=== PATIENT | female | born 1970 | race Caucasian/White ===

== ENCOUNTER 2023-12-03 00:49 | Day surgery (SDC) | payer OTHER, SELFPAY ==
[2023-11-19 10:03] VITALS: BMI 23.5
--- NOTE | 2023-12-03 08:07 | WPDANESEPPF ---
Anes - Initial Pre Proc Eval Procedure: Operation Date: 12/03/23 10:00 Proposed Procedures p Screening Colonoscopy - Cyril Pennington MD Date/Time: 12/03/23 08:07 Surgeon: Cyril Pennington MD Pre Op Diagnosis: neoplasm screening Patient Data Age: 53 Gender: F Height: 1.68 m Weight: 66 kg Allergies Allergy/AdvReac Type Severity Reaction Status Date / Time No Known Allergies Allergy Verified 12/03/23 08:43 Home Medications Medication Instructions Recorded Confirmed Type losartan 100 1 tablet PO DAILY 11/19/23 12/03/23 History mg-hydrochlorothiazide 12.5 mg tablet Patient hx anesthesia problems: none Family hx anesthesia problems: none Results Review: All pre-operative results and documents have been reviewed as part of the pre-operative evaluation. [facility] Past Medical History Medical History (Updated 12/03/23 @ 08:07 by Taco Collins DO) Hypertension Surgical History Surgical History (Updated 12/03/23 @ 08:07 by Taco Collins DO) History of tubal ligation Social History Social History Alcohol intake: current Living arrangements: with family Spiritual care concerns: No Anes - Eval Final PreProcedure Day of Procedure 12/03/23 08:07 Patient weight: normal Heart: regular rate and rhythm Lungs: clear to auscultation and normal air movement Airway: Mallampati scale class II Neurological: alert and oriented Last oral intake: >/= 8 hours ASA classification: II Emergent: no Anesthetic plan: proceed Anesthesia type and monitoring: general GIVS and standard monitoring Results Review: All pre-operative results and documents have been reviewed as part of the pre-operative evaluation. Informed Consent: The patient's anesthetic plan and its attendant risks and benefits were discussed with the patient/family/POA. Questions were solicited and answers provided to the satisfaction of the patient/family/POA.
[2023-12-03 08:44] VITALS: BP 122/68; PULSE 56; RESP 16; TEMP 36.8; O2SAT 100
[2023-12-03] MEDS: LACTATED RINGERS 1,000 ML 150 ML IV CONT (08:53)
--- NOTE | 2023-12-03 09:08 | PM.HPGS ---
History of Present Illness History of Present Illness Consent: Risks, benefits, and alternatives have been discussed and questions answered. Patient agrees to proceed with procedure. Chief complaint: neoplasm screening Narrative: Tina Aceves is a 53 year old female here for first screening colonoscopy, sister had colon cancer Review of Systems Review of Systems: All systems reviewed & are unremarkable except as noted in HPI and below PMFSH Past Medical History Medical History (Updated 12/03/23 @ 09:09 by Cyril Pennington MD) Family history of colon cancer Hypertension Surgical History Surgical History (Updated 12/03/23 @ 08:07 by Taco Collins DO) History of tubal ligation Social History Social History Alcohol intake: current Living arrangements: with family Spiritual care concerns: No Meds Home Medications and Allergies Home Medications Medication Instructions Recorded Confirmed Type losartan 100 1 tablet PO DAILY 11/19/23 12/03/23 History mg-hydrochlorothiazide 12.5 mg tablet Allergies Allergy/AdvReac Type Severity Reaction Status Date / Time No Known Allergies Allergy Verified 12/03/23 08:43 Vital Signs Vital Signs - 24 hr 12/03/23 08:44 Temperature 98.3 F Pulse Rate 56 L Respiratory Rate 16 Blood Pressure 122/68 Pulse Oximetry 100 Oxygen Delivery Room Air Exam Const: General: comfortable and no acute distress HENMT: Face/Nose/Sinus: Normal nares present Eyes: General: appearance normal, both eyes and all related structures Neck: Neck: no JVD Resp: Auscultation: clear to auscultation bilaterally Cardio: Rate: regular rate Rhythm: regular rhythm GI: Inspection: non-distended GI Palp: Yes Soft to palpation Skin: General skin exam: normal color Neuro: General: gait normal Speech: normal speech Extrem: General: normal to inspection Psych: Mental Status: mental status grossly normal Assessment and Plan Assessment and plan (1) Family history of colon cancer: Code(s): Z80.0 - Family history of malignant neoplasm of digestive organs Status: Acute Assessment and Plan: colonoscopy
[2023-12-03 09:29] VITALS: BP 85/50; PULSE 66; RESP 19; O2SAT 96
[2023-12-03 09:39] VITALS: BP 103/65; PULSE 59; RESP 15; O2SAT 99
[2023-12-03 09:49] VITALS: BP 107/63; PULSE 58; RESP 20; O2SAT 100
[2023-12-03] MEDS: PROPARACAINE HCL 0.5% 15 ML OPHTH SOLN 1 DROP EACH EYE (10:03)
[2023-12-03] MEDS: DICLOFENAC SODIUM 0.1% OPHTH SOLN 2.5 ML BOTTLE 1 DROP EACH EYE (10:13)
--- NOTE | 2023-12-03 10:15 | SUR.PHASEII ---
Pt. reports blurred vision and irritation to left eye, Dr. Collins notified and eye protocol started. Eye drops ordered and administered to left eye per protocol. Pt. reports improvement in vision and less irritation. Discharge completed without difficulty.
[2023-12-03] MEDS: ARTIFICIAL TEARS OPHTH SOLN 15 ML BOTTLE 1 DROP EACH EYE (10:21)
== END 2023-12-03 10:29 | disposition home or self-care (01) ==
PROVIDERS: PCP Physician Assistant; Visit Provider Internal Medicine Gastroenterology
PROC: 0DJD8ZZ Inspection of Lower Intestinal Tract, Via Natural or Artificial Opening Endoscopic (ICD-10-PCS; CPT 45378; principal; 2023-12-03 10:00)
DX: Z12.11 Encounter for screening for malignant neoplasm of colon (principal); D12.2 Benign neoplasm of ascending colon; I10 Essential (primary) hypertension; Z98.51 Tubal ligation status; Z80.0 Family history of malignant neoplasm of digestive organs
CPT/HCPCS: 45380; 88305; A9270; J2704; J7120

== ENCOUNTER 2024-11-16 16:04 | Emergency (ER) | payer OTHER, SELFPAY ==
--- NOTE | ~2024-11-16 | XR_ITS ---
XR chest 2V Ordering provider: Manuel Love MD History: 54 years Female with . weakness . Comparison: None. FINDINGS: MEDIASTINUM: The cardiac silhouette is not enlarged. LUNGS: No infiltrates, effusions or pneumothorax. OTHER: No free air under the diaphragm. Degenerative changes of the spine. IMPRESSION: No acute cardiopulmonary pathology Reviewed, dictated and finalized at location A.
[2024-11-16 16:02] VITALS: BP 137/88; PULSE 65; RESP 20; TEMP 36.7; O2SAT 99
--- NOTE | 2024-11-16 16:08 | ECG_ITS ---
Test Date: 2024-11-16 16:11:25 Measurements Intervals Riley Rate: 63 P: 64 NM: 167 QRS: 88 QRSD: 98 T: 63 QT: 406 QTc: 418 Interpretive Statements SINUS RHYTHM No previous ECG available for comparison Electronically Signed On 11-17-2024 12:04:32 CDT by Danish Moreno M.D.
[2024-11-16 16:23] LABS: Basophils Percent Auto 0.3 % (0.2-1.2); Eosinophils Percent Auto 0.3 % (0-4.4); Hemoglobin 13.3 g/dL (12.0-15.0); Immature Granulocyte Absolute 0.01 K/mm3 (0.00-0.031); Immature Granulocyte Percent A 0.1 % (0-0.5); Lymphocytes Absolute Auto 3.54 K/mm3 (0.9-3.2); Lymphocytes Percent Auto 40.2 % (18.3-44.2); Mean Corpuscular HGB Conc 32.4 g/dl (32-36); Mean Corpuscular Hemoglobin 31.5 pg (26-34); Mean Corpuscular Volume 97.2 fl (80-100); Mean Platelet Volume 9.5 fl (7.4-10.4); Monocytes Absolute Auto 0.8 K/mm3 (0.1-0.6); Monocytes Percent Auto 8.9 % (2.6-8.5); Neutrophils Absolute Auto 4.4 K/mm3 (1.3-6.7); Neutrophils Percent Auto 50.2 % (45.5-73.1); Platelet Count Result 246 k/mm3 (150-375); Red Blood Count 4.22 M/mm3 (4.2-5.4); Red Cell Distribution Width 13.8 % (11.5-14.5); White Blood Count 8.8 K/mm3 (4.5-10.0)
[2024-11-16 16:34] LABS: Alanine Aminotransferase 19 U/L (6-35); Albumin Level 4.4 g/dL (3.5-5.1); Alkaline Phosphatase 98 U/L (38-126); Anion Gap 8 mmol/L (4-12); Aspartate Amino Transferase 27 U/L (14-36); Bilirubin,Total 0.4 mg/dL (0.2-1.3); Blood Urea Nitrogen 18 mg/dL (7-17); Calcium 9.4 mg/dL (8.4-10.2); Carbon Dioxide 28 mmol/L (22-30); Chloride 104 mmol/L (98-107); Estimated CRCL calculation 63 ml/min; Estimated Glomerular Filt Rate > 60; Glucose 116 mg/dL (65-110); Potassium 3.4 mmol/L (3.4-5.0); Sodium 140 mmol/L (137-145)
--- OUTSIDE RECORDS SUMMARY | 2024-11-16 16:36 | XMS_ITS | Encounter Summary ---
Author Organization [facility] Facility Care Team Providers Care Electrical Transmission Engineer Name Role Phone Alvin Bailey NP Primary Care Provider [phone] Aleks Franks MD Unavailable [phone] Aleks Franks MD Unavailable [phone] Miscellaneous, Not In File Primary Care Provider Unavailable Heidi Hayden Primary Care Provider + Encounter Details Date Type Department Care Team (Latest Contact Info) Description 11/28/2014 Orders Only [facility]IN[facility] ProviderOanh MD [address] [place] [id number] Social History Tobacco Use Types Packs/Day Years Used Date Smoking Tobacco: Never Assessed Comments Unknown Sex and Gender Information Value Date Recorded Sex Assigned at Not on file Legal Sex Female 2:52 AM CLINICAL MENTAL HEALTH COUNSELOR Gender Identity Not on file Sexual Orientation Not on file documented as of this encounter Plan of Treatment Not on file documented as of this encounter Procedures Procedure Name Priority Date/Time Associated Diagnosis Comments CARDIOLOGY REPORT 07/29/2016 12: 00 AM CLINICAL MENTAL HEALTH COUNSELOR documented in this encounter Results * CARDIOLOGY REPORT (07/29/2016 12:00 AM CLINICAL MENTAL HEALTH COUNSELOR) Anatomical Region Laterality Modality Other Narrative 07/29/2016 12:00 AM CLINICAL MENTAL HEALTH COUNSELOR Ordered by an unspecified provider. Historical Provider [facility] DAVIDA THURSTON Final Result documented in this encounter Visit Diagnoses Not on filedocumented in this encounter Care Teams Electrical Transmission Engineer Relationship Specialty Start Date End Date Alvin Bailey NP PCP - General Family Practice 02/14/19 12/17/19 Miscellaneous, Not In File PCP - General 12/18/19 02/12/20 Heidi Hayden PA PCP - General 02/13/20 Aleks Franks MD Consulting Physician Cardiovascular Disease 02/14/19 Aleks Franks MD Mortgage Loan Interviewer Cardiology 02/17/19 documented as of this encounter
--- OUTSIDE RECORDS SUMMARY | 2024-11-16 16:36 | XMS_ITS | Encounter Summary ---
Author Organization [facility] Facility Care Team Providers Care Sliver Lapper Name Role Phone Alvin Bailey NP Primary Care Provider [phone] Aleks Franks MD Unavailable [phone] Aleks Franks MD Unavailable [phone] Miscellaneous, Not In File Primary Care Provider Unavailable Heidi Hayden Primary Care Provider + Encounter Details Date Type Department Care Team (Latest Contact Info) Description 01/03/2015 Orders Only [facility]INCON[facility] ProviderOanh MD [address] [place] [address] Social History Tobacco Use Types Packs/Day Years Used Date Smoking Tobacco: Never Assessed Comments Unknown Sex and Gender Information Value Date Recorded Sex Assigned at Not on file Legal Sex Female 2:52 AM HOSPICE VOLUNTEER Gender Identity Not on file Sexual Orientation Not on file documented as of this encounter Plan of Treatment Not on file documented as of this encounter Procedures Procedure Name Priority Date/Time Associated Diagnosis Comments CARDIOLOGY REPORT 07/29/2016 12: 00 AM HOSPICE VOLUNTEER documented in this encounter Results * CARDIOLOGY REPORT (07/29/2016 12:00 AM HOSPICE VOLUNTEER) Anatomical Region Laterality Modality Other Narrative 07/29/2016 12:00 AM HOSPICE VOLUNTEER Ordered by an unspecified provider. Historical Provider [facility] DAVIDA THURSTON Final Result documented in this encounter Visit Diagnoses Not on filedocumented in this encounter Care Teams Sliver Lapper Relationship Specialty Start Date End Date Alvin Bailey NP PCP - General Family Practice 02/14/19 12/17/19 Miscellaneous, Not In File PCP - General 12/18/19 02/12/20 Heidi Hayden PA PCP - General 02/13/20 Aleks Franks MD Consulting Physician Cardiovascular Disease 02/14/19 Aleks Franks MD Supervisor [facility] Cardiology 02/17/19 documented as of this encounter
--- OUTSIDE RECORDS SUMMARY | 2024-11-16 16:36 | XMS_ITS | Referral Summary ---
Author Organization [facility] Address [address] [place] [address] Care Team Providers Care Real Estate Management Specialist Name Role Phone Aleks Franks MD Unavailable [phone] Heidi Hayden Primary Care Provider + Encounters Date Type Department Care Team Description 08/22/2024 4:45 PM HEAVY FORGER HELPER Office Visit [facility] Medical [facility] Care at [address] [address] Betty Chavez NP Acute cough (Primary Dx) from Last 3 Months Allergies No known active allergies Medications lisinopril-hydr oCHLOROthiazide (PRINZIDE,ZESTO RETIC) 10-12.5 mg per tablet Take 1 tablet by mouth daily 1 02/15/2019 Active acetaminophen (TYLENOL) 325 mg tablet Take 1 tablet (325 mg total) by mouth as needed Active escitalopram (LEXAPRO) 20 mg tablet Take 1 tablet (20 mg total) by mouth daily Active oxyBUTYnin (DITROPAN) 5 mg tablet Take 1 tablet (5 mg total) by mouth 3 (three) times a day 90 tablet 08/09/2023 Active traMADoL (ULTRAM) 50 mg tablet Take 1 tablet (50 mg total) by mouth every 6 (six) hours for 2 days 8 tablet 08/09/2023 Active losartan-hydroC HLOROthiazide (HYZAAR) 100-12.5 mg per tablet TAKE 1 TABLET BY MOUTH EVERY DAY FOR BLOOD PRESSURE AND FLUID RETENTION. Active Active Problems Problem Noted Date Diagnosed Date Irregular bowel habits 08/22/2024 Lower urinary tract symptoms (LUTS) 08/22/2024 Urinary tract infection, chronic 08/16/2023 Abdominal pain, acute 03/19/2023 Abnormal result of other cardiovascular function study 11/16/2022 Abnormal EKG 10/19/2022 Palpitations 10/19/2022 Tingling of skin 10/19/2022 Chest pain, unspecified 02/22/2019 Assessment & Plan (02/22/2019 11:54 AM CDT): Occurs rarely. Atypical. None while exercising. Stress test 1 year ago okay. No additional workup at this time. Cardiac arrhythmia 09/30/2018 Mitral valve prolapse 09/29/2018 Supraventricular tachycardia 09/29/2018 Essential hypertension 01/07/2017 Assessment & Plan (02/22/2019 11:53 AM CDT): Controlled. Continue lisinopril PVC's (premature ventricular contractions) 01/07 Assessment & Plan (02/22/2019 11:53 AM CDT): Frequent. Symptomatic. Remotely ablated with excellent results. Anxiety disorder 07/29/2016 Dizziness 07/29/2016 Shortness of breath 07/29/2016 Social History Tobacco Use Types Packs/Day Years Used Date Smoking Tobacco: Never Smokeless Tobacco: Never Alcohol Use Standard Drinks/Week Comments Yes 0 (1 standard drink = 0.6 oz pur e alcohol) occassionally Personal Safety Answer Date Recorded Have you ever been in or are you currently in a harmful physical or emotional relationship or is someone making you feel afraid or unsafe? Denies 08/08/2023 Comments No Sex and Gender Information Value Date Recorded Sex Assigned at Not on file Legal Sex Female 2:52 AM HEAVY FORGER HELPER Gender Identity Not on file Sexual Orientation Not on file Last Filed Vital Signs Vital Sign Reading Time Taken Comments Blood Pressure 142/81 08/22/2024 4:45 PM HEAVY FORGER HELPER Pulse 69 08/22/2024 4:45 PM HEAVY FORGER HELPER Temperature 36.8 C (98.3 F) 08/22/2024 4:45 PM HEAVY FORGER HELPER Respiratory Rate 20 08/22/2024 4:45 PM HEAVY FORGER HELPER Oxygen Saturation 99% 08/22/2024 4:45 PM HEAVY FORGER HELPER Inhaled Oxygen Concentration - - Weight 69.9 kg (154 lb) 08/22/2024 4:45 PM HEAVY FORGER HELPER Height 167.6 cm (5' 6 ) 08/22/2024 4:45 PM HEAVY FORGER HELPER Body Mass Index 24.86 08/22/2024 4:45 PM HEAVY FORGER HELPER Plan of Treatment Not on file Procedures Procedure Name Priority Date/Time Associated Diagnosis Comments SCREENING MAMMOGRAM BILATERAL W TUSHAR Routine 11/19/2014 5:44 PM CDT from Last 3 Months or Most Recently Relevant to Health Maintenance Results * Screening Mammogram Bilateral W Tushar (11/19/2014 5:44 PM CDT) Anatomical Region Laterality Modality Breast Bilateral Mammography 11/19/2014 5:44 PM CDT Impressions 11/20/2014 8:27 AM CDT BIRADS 2: BENIGN There is no mammographic evidence of malignancy. A 1 year screening mammogram is recommended. The patient has been or will be contacted. The patient will be entered into an automated reminder system to schedule a mammogram in one year. Electronically signed by: Conrad Poe md/:11/20/2014 08:22:57 Funeral Planner: Payton FARAH (R)(M), [facility] letter sent: Normal Exam Reading location: BI-RADS: 2 Benign [EOD] Narrative 11/20/2014 8:27 AM CDT - JHONATHAN BILAT SCREENING 3D W/CAD BILATERAL DIGITAL SCREENING MAMMOGRAM 3D/2D WITH CAD WITH MEDIOLATERAL OBLIQUE CRANIOCAUDAL: 11/19/2014 The study was acquired using full field digital technology and interpreted from soft copy. Current study was also evaluated with ICAD version 7.2. CLINICAL: Baseline exam. Patient denies any problems today. No family or personal history of breast cancer. COMPARISONS: No prior exams were available for comparison. BREAST TISSUE: The tissue of both breasts is heterogeneously dense which may obscure small masses. FINDINGS: Multiple subcentimeter oval circumscribed isodense masses are present within both breasts. These are most consistent with a benign process, probably cysts and/or intramammary lymph nodes. No suspicious/spiculated mass is seen within either breast. There are no suspicious microcalcifications or other significant findings. Procedure Note Provider, MD Oanh - 11/26/2020 - JHONATHAN BILAT SCREENING 3D W/CAD BILATERAL DIGITAL SCREENING MAMMOGRAM 3D/2D WITH CAD WITH MEDIOLATERALOBLIQUE CRANIOCAUDAL: 11/19/2014 The study was acquired using full field digital technology and interpretedfrom soft copy. Current study was also evaluated with ClzbyD version 7.2. CLINICAL: Baseline exam. Patient denies any problems today. No family or personal history of breast cancer. COMPARISONS: No prior exams were available for comparison. BREAST TISSUE: The tissue of both breasts is heterogeneously dense whichmay obscure small masses. FINDINGS: Multiple subcentimeter oval circumscribed isodense masses are present within both breasts. These are most consistent with a benignprocess, probably cysts and/or intramammary lymph nodes. No suspicious/spiculated mass is seen within either breast. There are no suspicious microcalcifications or other significant findings. IMPRESSION: BIRADS 2: BENIGN There is no mammographic evidence of malignancy. A 1 year screeningmammogram is recommended. The patient has been or will be contacted. The patient will be entered into an automated reminder system to schedulea mammogram in one year. Electronically signed by: Conrad Poe md/:11/20/2014 08:22:57 Funeral Planner: Payton Phoenix RT (R)(M), [facility] letter sent: Normal Exam Reading location: BI-RADS: 2 Benign [EOD] Tina Garza MD IMG MAMMO PRO CEDURES Final Result from Last 3 Months or Most Recently Relevant to Health Maintenance Insurance ALLIED BENEFITS [employer] HE[employer] OPEN ACCESS HE[employer] OPEN ACCESS HE[employer] PPO POS Advance Directives For more information, please contact: [phone] Documents on File Type Date Recorded Patient Therapeutic Mentor Expl anation ADVANCE DIRECTIVE 01/02/2015 12:00 AM KELECHI Steele OF [employer] FACILITATOR FINANCIAL/MEDICAL Care Teams Real Estate Management Specialist Relationship Specialty Start Date End Date Heidi Hayden PA PCP - General 02/13/20 Aleks Franks MD Radio Artist Cardiology 02/17/19
--- OUTSIDE RECORDS SUMMARY | 2024-11-16 16:36 | XMS_ITS | CONTINUITY OF CARE DOCUMENT ---
Author Name peyton todd Address Unknown Organization [facility] Address [address] [place] [address] Phone [phone] Care Team Providers Care Massage Therapist Name Role Phone Joseph Ferreira MD Unavailable CHRISTI DAIGLE MD Unavailable [phone] CHRISTI DAIGLE MD Unavailable [phone] PROBLEMS Condition Status Date Provider Notes Cardiology examination active Joseph benedict MD Chest pain, normal coronary CTA 12/2022 active Joseph Ferreira MD PVCs s/p ablation with Dr. Franks at [facility] active Joseph Ferreira MD Tingling, fingers active Joseph Ferreira MD Family History of CVA active Joseph Ferreira MD Mitral valve prolapse completed - Joseph Ferreira MD Palpitations active Joseph Ferreira MD HTN essential active Joseph Ferreira MD Abnormal EKG active Joseph Ferreira MD Abnormal cardiovascular stre ss test 11/2022, false positive active Joseph Ferreira MD Abdominal pain, acute active Jensen Gonzalez Urinary tract infection, chronic active Joseph Ferreira MD Cardiology examination active Joseph benedict MD ENCOUNTERS Date Type Provider Location Encounter Diag nosis - In-person encounter Office Visit Joseph Ferreira MD [place] [facility] - In-person encounter Office Visit Joseph Ferreira MD [place] [facility] Cardiology examination - In-person encounter Office Visit Joseph Ferreira MD [place] [facility] Urinary tract infection, chronic - In-person encounter Office Visit [facility] HTN essential - In-person encounter Office Visit [facility] Abdominal pain, acute - In-person encounter Office Visit Joseph Ferreira MD [place] [facility] Chest pain, normal coronary CTA bnormal cardiovascular stress test 11/2022, false positive - In-person encounter Office Visit Joseph Ferreira MD [place] [facility] Mitral valve prolapseAbnormal cardiovascular stress test 11/2022, false positive - In-person encounter Office Visit Joseph Ferreira MD [place] [facility] Cardiology examinationChest pain, normal coronary CTA VCs s/p ablation with Dr. Franks at [facility] History of CVAPalpitationsHTN essentialAbnormal EKG VITAL SIGNS Date Observation Value Provider Body Mass Index (Ratio) 24.85 kg/m2 Kenyon Ferreira MD pulse rate 67 /min Nakia samayoa oxygen saturation, oximetry 97 % Nakia Roberts blood pressure, diastolic 80 mm[Hg] Ti leo Roberts blood pressure, systolic 120 mm[Hg] Shashi Roberts weight E&M 154 [lb_av] Nakia samayoa blood pressure, cuff size regular Ti leo Roberts height E&M 66 [in_i] Nakia samayoa Body Mass Index (Ratio) 24.05 kg/m2 Kenyon Ferreira MD blood pressure, diastolic 79 mm[Hg] Catherine nkLogic blood pressure, systolic 111 mm[Hg] Constanza kLog blood pressure, cuff size regular Ta rogelio Merlos blood pressure, diastolic 79 mm[Hg] Ta bitha Merlos blood pressure, systolic 111 mm[Hg] Tab jacquelyna Hardin pulse rate 74 /min Vianey Merlos weight E&M 149 [lb_av] Vianey Merlos oxygen saturation, oximetry 96 % Vianey Merlos respiratory rate E&M 12 /min Vianey Hardin height E&M 66 [in_i] Vianey Hardin Body Mass Index (Ratio) 24.69 kg/m2 Kenyon Ferreira MD blood pressure, cuff size regular [facility] blood pressure, diastolic 82 mm[Hg] [facility] blood pressure, systolic 111 mm[Hg] [facility] E&M 153 [lb_av] [facility] pulse rate 61 /min [facility] oxygen saturation, oximetry 98 % [facility] respiratory rate E&M 16 /min Adrienne Nancy kristel height E&M 66 [in_i] [facility] Body Mass Index (Ratio) 25.18 kg/m2 Kenyon Ferreira MD blood pressure, diastolic 90 mm[Hg] Sandhya cordonkvng Carter blood pressure, systolic 118 mm[Hg] Doroteo Carter oxygen saturation, oximetry 98 % Esperanza Carter pulse rate 62 /min Esperanza rowland blood pressure, cuff size large Sandhya cornelius Raul respiratory rate E&M 14 /min Alicja Carter weight E&M 156 [lb_av] Esperanza rowland height E&M 66 [in_i] Esperanza Ramsey kashif Body Mass Index (Ratio) 25.14 kg/m2 Kenyon Ferreira MD blood pressure, cuff size regular Catherine stewart Francis blood pressure, diastolic 105 mm[Hg] Li hailybeduke Francis blood pressure, systolic 152 mm[Hg] Priyanka barrientosh Francis oxygen saturation, oximetry 99 % Nevaeh Francis respiratory rate E&M 16 /min Nevaeh Francis pulse rate 65 /min Nevaeh Ruiz weight E&M 155.8 [lb_av] Nevaeh Ruiz height E&M 66 [in_i] [facility] Body Mass Index (Ratio) 25.34 kg/m2 Rodney Gonzalez pulse rate 62 /min Rebecca Bhardwaj blood pressure, cuff size regular ynes Bhardwaj blood pressure, diastolic 82 mm[Hg] ynes Bhardwaj blood pressure, systolic 133 mm[Hg] She elly Bhardwaj oxygen saturation, oximetry 97 % Rebecca Bhardwaj respiratory rate E&M 18 /min Rebecca Bhardwaj weight E&M 157 [lb_av] Rebecca Bhardwaj height E&M 66 [in_i] Rebecca Bhardwaj Body Mass Index (Ratio) 24.85 kg/m2 Kenyon Ferreira MD blood pressure, cuff size regular Ke rri Butchuenenfmeli blood pressure, diastolic 80 mm[Hg] Ke rri Gruenenfelder blood pressure, systolic 150 mm[Hg] Ker ri Marynenfeldheike oxygen saturation, oximetry 98 % Keyona Nichelle respiratory rate E&M 12 /min Keyona Jessica simmseldheike pulse rate 69 /min Keyona Marynenfe [facility] weight E&M 154 [lb_av] Keyona Saldaña [facility] height E&M 66 [in_i] Keyona Saldaña [facility] Body Mass Index (Ratio) 24.39 kg/m2 Kenyon ross Ferreira MD blood pressure, diastolic -1 mm[Hg] Li nkLogly blood pressure, systolic 147 mm[Hg] Constanza kLogly blood pressure, diastolic 93 mm[Hg] Ilya Bhardwaj blood pressure, systolic 147 mm[Hg] She elly Bhardwaj blood pressure, cuff size regular Ilya Bhardwaj pulse rate 61 /min Joseph Ferreira MD oxygen saturation, oximetry 98 % Rebecca Bhardwaj respiratory rate E&M 18 /min Rebecca Bhardwaj weight E&M 151.1 [lb_av] Rebecca Bhardwaj height E&M 66 [in_i] Rebecca Bhardwaj ALLERGIES No Known Drug Allergies RESULTS Date Observation Value Provider Reference Range Interpretation Location 7 creatinine, serum 0.71 mg/dL [facility] 0.50-1.03 Normal 7 C-reactive protein, by highly sensitive test 1.6 mg/L [facility] <1.0 High 7 LDL Size 223.6 Angstrom [facility] >222.9 7 LDL particle concentration (lipoprotein panel), risk categories correspond to NCEP categories for LDL cholesterol (on a percentile equivalent basis) 941 nmol/L [facility] <1138 7 cholesterol, non-HDL, total 76 MG/DL (CALC) [facility] <130 7 cholesterol/HDL ratio, serum, percent 2.2 calc [facility] <3.6 7 LDL cholesterol, serum 62 MG/DL (CALC) [facility] <100 7 triglyceride, serum, fasting 49 mg/dL [facility] <150 7 HDL cholesterol, serum 66 mg/dL [facility] >49 7 cholesterol, serum 142 mg/dL [facility] <200 HISTORY OF MEDICATION USE Medication Status Instructions Dates Provider Indications Com ments losartan-hydroc hlorothiazide 100-12.5 mg tablet active TAKE 1 TABLET BY MOUTH EVERY DAY FOR BLOOD PRESSURE AND FLUID RETENTION. Therese Melgoza losartan-hydroc hlorothiazide 100-12.5 mg tablet completed Take 1 tablet by mouth once a day - Therese Melgoza metoprolol tartrate 100 mg tablet completed TAKE 1 TABLET BY MOUTH THE EVENING BEFORE THE CT AND 1 TABLET an hour and a half BEFORE CT - Jensen Gonzalez SOCIAL HISTORY Date Observation Value Provider smoking status Never smoker Joseph benedict MD smoking status Never smoker Adrienne Merlos social history E&M S moking History: Levi perez has never smoked. Joseph eFrreira MD social history reviewed E&M revi ewed - no changes required Joseph Ferreira MD smoking status Never smoker Esperanza Arzola and social history E&M S moking History: Levi perez has never smoked. Jensen Gonzalez social history reviewed E&M revi ewed - no changes required Jensen Gonzalez smoking status Never smoker Nevaeh Francis social history E&M S moking History: Levi perez has never smoked. Joseph Ferreira MD social history reviewed E&M revi ewed - no changes required Joseph Ferreira MD smoking status Never smoker Rebecca Bhardwaj social history E&M S moking History: Levi perez has never smoked. Joseph Ferreira MD social history reviewed E&M revi ewed - no changes required Joseph Ferreira MD smoking status Never smoker Keyona dacosta number of grandchildren Joseph Ferreira MD social history E&M S moking History: Levi perez has never smoked. Joseph Ferreira MD social history reviewed E&M alecia ayala - no changes required Joseph Ferreira MD smoking status Never smoker Rebecca Bhardwaj INSURANCE PROVIDERS Payer name Policy type / Coverage type Sallie red constitution party ID [employer] Other [id number] ADVANCE DIRECTIVES Name Date DISCUSSED - NO DECISION MADE TREATMENT PLAN Date Name Performer [id number],S, Joseph Berkowitz ra, [place] [id number],S, Joseph Berkowitz ra, MD [id number],S, Joseph Berkowitz ra, [place] [id number],B, B P today: 118/90 P rior BP: 152/105 (03/19/2023) Her updated medication list for this problem includes: Losartan-hydrochlorothiazide 100-12.5 Mg Tablet (Losartan-hydrochlorothiazide) ..... Take 1 tablet by mouth once a day Joseph Ferreira MD [id number],WJensen [id number],W, B P today: 152/105 P rior BP: 133/82 (01/11/2023) The following medications were removed from the medication list: Metoprolol Tartrate 100 Mg Tablet (Metoprolol tartrate) ..... Take 1 tablet by mouth the evening before the ct and 1 tablet an hour and a half before ct Her updated medication list for this problem includes: Losartan-hydrochlorothiazide 100-12.5 Mg Tablet (Losartan-hydrochlorothiazide) ..... Take 1 tablet by mouth once a day Jensen Gonzalez [id number],S, Jensen Gonzalez [id number],WJensen [id number],B, T he following medications were removed from the medication list: Metoprolol Tartrate 100 Mg Tablet (Metoprolol tartrate) ..... Take 1 tablet by mouth the evening before the ct and 1 tablet an hour and a half before ct Jensen Gonzalez [id number],S, T he following medications were removed from the medication list: Metoprolol Tartrate 100 Mg Tablet (Metoprolol tartrate) ..... Take 1 tablet by mouth the evening before the ct and 1 tablet an hour and a half before ct Jensen Carlos [id number],S, Joseph Berkowitz ra, [place] [id number],S, H er updated medication list for this problem includes: Metoprolol Tartrate 100 Mg Tablet (Metoprolol tartrate) ..... Take 1 tablet by mouth the evening before the ct and 1 tablet an hour and a half before ct Joseph Ferreira MD [id number],S, B P today: 133/82 P rior BP: 150/80 (11/16/2022) Her updated medication list for this problem includes: Metoprolol Tartrate 100 Mg Tablet (Metoprolol tartrate) ..... Take 1 tablet by mouth the evening before the ct and 1 tablet an hour and a half before ct Joseph Ferreira MD [id number],BJoseph ra, MD [id number],SJoseph ra, MD [id number],S, Joseph Berkowitz ra, MD [id number],S, Joseph Berkowitz ra, MD [id number],S, Joseph Berkowitz ra, MD [id number],S, Joseph Berkowitz ra, MD [id number],N, Joseph Berkowitz ra, MD [id number],W, B P today: 147/93 Joseph Ferreira MD [id number],S, Joseph Berkowitz ra, MD [id number],S, Joseph Berkowitz ra, MD [id number],W, Joseph Berkowitz ra, MD [id number],S, Joseph Berkowitz ra, MD [id number],W, Joseph Berkowitz ra, MD Cardiology Joseph Rowland Cardiology:This visi t has been a part of the consistent, comprehensive, and ongoing management of the chronic medical condition(s) listed above for the patient. BP today: 120/80 P rior BP: 111/79 (04/10/2024) Labs Reviewed: C reat: 0.71 (12/26/2022) C hol: 142 (12/26/2022) HDL: 66 (12/26/2022) LDL: 62 MG/DL (CALC) (12/26/2022) T (12/26/2022) Her updated medication list for this problem includes: Losartan-hydrochlorothiazide 100-12.5 Mg Tablet (Losartan-hydrochlorothiazide) ..... Take 1 tablet by mouth every day for blood pressure and fluid retention. Joseph Ferreira MD Cardiology Joseph Rowland Cardiology Joseph Rowland Cardiology Joseph Rowland Cardiology Joseph Rowland Cardiology Joseph Rowland Cardiology Joseph Rowland Cardiology: H er updated medication list for this problem includes: Losartan-hydrochlorothiazide 100-12.5 Mg Tablet (Losartan-hydrochlorothiazide) ..... Take 1 tablet by mouth once a day Joseph Ferreira MD Cardiology Joseph Rowland Cardiology Joseph Rowland Cardiology Joseph Rowland Cardiology: B P today: 111/82 P rior BP: 118/90 (04/16/2023) Labs Reviewed: C reat: 0.71 (12/26/2022) C hol: 142 (12/26/2022) HDL: 66 (12/26/2022) LDL: 62 MG/DL (CALC) (12/26/2022) T (12/26/2022) Her updated medication list for this problem includes: Losartan-hydrochlorothiazide 100-12.5 Mg Tablet (Losartan-hydrochlorothiazide) ..... Take 1 tablet by mouth once a day Joseph Ferreira MD Cardiology Joseph Rowland Cardiology Joseph Rowland Cardiology Joseph Rowland Cardiology Joseph Rowland Cardiology Joseph Rowland Cardiology Joseph Rowland Cardiology: B P today: 118/90 P rior BP: 152/105 (03/19/2023) Her updated medication list for this problem includes: Losartan-hydrochlorothiazide 100-12.5 Mg Tablet (Losartan-hydrochlorothiazide) ..... Take 1 tablet by mouth once a day Joseph Ferreira MD Cardiology Jensen Gonzalez Cardiology: B P today: 152/105 P rior BP: 133/82 (01/11/2023) The following medications were removed from the medication list: Metoprolol Tartrate 100 Mg Tablet (Metoprolol tartrate) ..... Take 1 tablet by mouth the evening before the ct and 1 tablet an hour and a half before ct Her updated medication list for this problem includes: Losartan-hydrochlorothiazide 100-12.5 Mg Tablet (Losartan-hydrochlorothiazide) ..... Take 1 tablet by mouth once a day Jensen Gonzalez Cardiology Jensen Gonzalez Cardiology Jensen Gonzalez Cardiology: T he following medications were removed from the medication list: Metoprolol Tartrate 100 Mg Tablet (Metoprolol tartrate) ..... Take 1 tablet by mouth the evening before the ct and 1 tablet an hour and a half before ct Jensen Gonzalez Cardiology: T he following medications were removed from the medication list: Metoprolol Tartrate 100 Mg Tablet (Metoprolol tartrate) ..... Take 1 tablet by mouth the evening before the ct and 1 tablet an hour and a half before ct Jensen Gonzalez Cardiology Joseph Rowland Cardiology: H er updated medication list for this problem includes: Metoprolol Tartrate 100 Mg Tablet (Metoprolol tartrate) ..... Take 1 tablet by mouth the evening before the ct and 1 tablet an hour and a half before ct Joseph Ferreira MD Cardiology: B P today: 133/82 P rior BP: 150/80 (11/16/2022) Her updated medication list for this problem includes: Metoprolol Tartrate 100 Mg Tablet (Metoprolol tartrate) ..... Take 1 tablet by mouth the evening before the ct and 1 tablet an hour and a half before ct Joseph Ferreira MD Cardiology Joseph Rowland Cardiology Joseph Rowland Cardiology Joseph Rowland Cardiology Joseph Rowland Cardiology Joseph Rowland Cardiology Joseph Rowland Cardiology Joseph Rowland Cardiology: B P today: 147/93 Joseph Ferreira MD Cardiology Joseph Rowland Cardiology Joseph Rowland Cardiology Joseph Rowland Cardiology Joseph Rowland Cardiology Joseph Rowland Date Name URINALYSIS, REFLEX CBC (H/H, RBC, INDIC ES, WBC, PLT) BASIC METABOLIC PANE L W/EGFR Creatinine, Serum CardioIQ Advanced Li pid Panel with Inflammation ([facility]) CT Angio Coronaries Ambulatory BP Stress Regadenoson Ambulatory BP Holter Monitor 24 Hr Complete Echo CardioIQ Advanced Li pid Panel with Inflammation ([facility]) HISTORY OF PROCEDURES Procedure Date Procedure Name Provider Procedure Notes S tatus Complex e/m visit add on Joseph Ferreira MD completed EKG Joseph Ferreira MD complet ed EKG Joseph Ferreira MD complet ed
--- OUTSIDE RECORDS SUMMARY | 2024-11-16 16:36 | XMS_ITS | Encounter Summary ---
Author Organization [facility] Facility Care Team Providers Care Senior Technical Support Analyst Name Role Phone Alvin Bailey NP Primary Care Provider [phone] Aleks Franks MD Unavailable [phone] Aleks Franks MD Unavailable [phone] Miscellaneous, Not In File Primary Care Provider Unavailable Heidi Hayden Primary Care Provider + Encounter Details Date Type Department Care Team (Latest Contact Info) Description 01/13/2017 Orders Only [facility] CLINCON[facility] ProviderOanh MD [address] [place] [id number] Social History Tobacco Use Types Packs/Day Years Used Date Smoking Tobacco: Never Assessed Comments Unknown Sex and Gender Information Value Date Recorded Sex Assigned at Not on file 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 Historical Provider Final Res ult documented in this encounter Visit Diagnoses Not on filedocumented in this encounter Care Teams Senior Technical Support Analyst Relationship Specialty Start Date End Date Alvin Bailey NP PCP - General Family Practice 02/14/19 12/17/19 Miscellaneous, Not In File PCP - General 12/18/19 02/12/20 Heidi Hayden PA PCP - General 02/13/20 Aleks Franks MD Consulting Physician Cardiovascular Disease 02/14/19 Aleks Franks MD Board Filler Cardiology 02/17/19 documented as of this encounter
--- OUTSIDE RECORDS SUMMARY | 2024-11-16 16:36 | XMS_ITS | Clinical Summary ---
Author Organization [facility] Address [address] [place] [address] Care Team Providers Care Medical Concierge Name Role Phone Unavailable Primary Care Provider Unavailabl e Source Comments [facility],non-owned Affiliates and Associated Physician Practices is amultiple site organization consisting of ambulatory clinics and hospital sitesin [place], [place], [place] and [place]. This disclosure is being madepursuant to the Care Everywhere program and may not contain all information available regarding this patient. 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 Gender Identity Not on file Sexual Orientation Not on file Plan of Treatment Health Maintenance Due Date Last Done Comments COLOGUARD (AGES 45-75) - COL ON CA SCREENING 1970 COLON MONITORING 1970 COLONOSCOPY - COLON CA SCREENING 1970 CT COLONOGRAPHY - COLON CA SCREENING 1970 Colorectal Cancer Screening 1970 FIT - COLON CA SCREENING 1970 FLEX SIG - COLON CA SCREENING 1970 LIPID TESTING 1970 MAMMOGRAM 1970 PAP SMEAR 1970 HIV SCREENING 1985 HEPATITIS C SCREENING 10/15/1988 DTAP/TDAP/TD VACCINES (1 - Tdap) 1989 HEPATITIS B VACCINE (1 of 3 - 19+ 3-dose series) 1989 PNEUMOCOCCAL VACCINE 50+ (1 of 1 - PCV) 2020 ZOSTER VACCINE (1 of 2) 2020 COVID-19 VACCINE ( - 2023-2 5 season) 2024 DEPRESSION SCREENING 07/12/2024 INFLUENZA VACCINE (Season Ended) 2025 HIB VACCINE Aged Out No longer eligi ble based on patient's age to complete this topic HPV VACCINE Aged Out No longer eligi ble based on patient's age to complete this topic MENINGOCOCCAL (Group B) VACC INE SHARED DECISION-MAKING Aged Out No longer eligibl e based on patient's age to complete this topic MENINGOCOCCAL GROUPS A/C/Y/W VACCINE Aged Out No longer eligible b ased on patient's age to complete this topic Insurance * Guarantor: ADITI CARNEY Account Type Relation to Patient Date of Phone Billing Address Personal/Family [address] [place] [address] [facility] Address: [address] SELF PAY NO INSURANCE Member Subscriber Plan / Payer (Ef fective for All Dates) Name:Aditi Carney Member ID:Not on file Relation to Subscriber:Not on file Name:ADITI CARNEY Subscriber ID:Not on file Address: [address] [place] [address] [place] [address] Payer ID:Not on file Group ID:Not on file Type:Self Pay Address: [place], [place] * Guarantor: ADITI CARNEY Account Type Relation to Patient Date of Phone Billing Address Personal/Family [address] [address] [employer] SELF PAY NO INSURANCE Member Subscriber Plan / Payer (Ef fective for All Dates) Name:Aditi Carney Member ID:Not on file Relation to Subscriber:Not on file Name:ADITI CARNEY Subscriber ID:Not on file Address: [address] [place] [address] Payer ID:Not on file Group ID:Not on file Type:Self Pay Address: [place], [place] * Guarantor: ADITI CARNEY Account Type Relation to Patient Date of Phone Billing Address Personal/Family [address] [place] [address] [facility] Address: [facility] [address] [place] [address] SELF PAY NO INSURANCE Member Subscriber Plan / Payer (Ef fective for All Dates) Name:Aditi Carney Member ID:Not on file Relation to Subscriber:Not on file Name:ADITI CARNEY Subscriber ID:Not on file Address: [address] [place] [address] Payer ID:Not on file Group ID:Not on file Type:Self Pay Address: [place], [place]
--- OUTSIDE RECORDS SUMMARY | 2024-11-16 16:36 | XMS_ITS | Encounter Summary ---
Author Organization [facility] Facility Care Team Providers Care Senior Analyst Name Role Phone Alvin Bailey NP Primary Care Provider Aleks Franks MD Unavailable [phone] Aleks Franks MD Unavailable [phone] Miscellaneous, Not In File Primary Care Provider Unavailable Heidi Hayden Primary Care Provider + Encounter Details Date Type Department Care Team (Latest Contact Info) Description 06/23/2017 Orders Only [facility]IN[facility] ProviderOanh MD [address] [place] [address] Social History Tobacco Use Types Packs/Day Years Used Date Smoking Tobacco: Never Assessed Comments Unknown Sex and Gender Information Value Date Recorded Sex Assigned at Not on file 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 Historical Provider Final Res ult documented in this encounter Visit Diagnoses Not on filedocumented in this encounter Care Teams Senior Analyst Relationship Specialty Start Date End Date Alvin Bailey NP PCP - General Family Practice 02/14/19 12/17/19 Miscellaneous, Not In File PCP - General 12/18/19 02/12/20 Heidi Hayden PA PCP - General 02/13/20 Aleks Franks MD Consulting Physician Cardiovascular Disease 02/14/19 Aleks Franks MD Engraver Hand Hard Metals Cardiology 02/17/19 documented as of this encounter
--- OUTSIDE RECORDS SUMMARY | 2024-11-16 16:36 | XMS_ITS | Encounter Summary ---
Author Organization [facility] Facility Care Team Providers Care Cigarette Stamper Name Role Phone LeoAlvin BRYNN Primary Care Provider [phone] Aleks Franks MD Unavailable [phone] Aleks Franks MD Unavailable [phone] Miscellaneous, Not In File Primary Care Provider Unavailable Heidi Hayden Primary Care Provider + Encounter Details Date Type Department Care Team (Latest Contact Info) Description 09/12/2015 Orders Only [facility] CLINCONV ProviderOanh MD [address] [place] [address] Social History Tobacco Use Types Packs/Day Years Used Date Smoking Tobacco: Never Assessed Comments Unknown Sex and Gender Information Value Date Recorded Sex Assigned at Not on file Legal Sex Female 2:52 AM TRANSLATOR DEAF Gender Identity Not on file Sexual Orientation Not on file documented as of this encounter Plan of Treatment Not on file documented as of this encounter Procedures Procedure Name Priority Date/Time Associated Diagnosis Comments SCAN - LABS 07/29/2016 12:00 AM TRANSLATOR DEAF CARDIOLOGY REPORT 07/29/2016 12: 00 AM TRANSLATOR DEAF documented in this encounter Results * SCAN - LABS (07/29/2016 12:00 AM TRANSLATOR DEAF) Narrative 07/29/2016 12:00 AM TRANSLATOR DEAF Ordered by an unspecified provider. Historical Provider Final Res ult * CARDIOLOGY REPORT (07/29/2016 12:00 AM TRANSLATOR DEAF) Anatomical Region Laterality Modality Other Narrative 07/29/2016 12:00 AM TRANSLATOR DEAF Ordered by an unspecified provider. us Historical Provider [facility] DAVIDA THURSTON Final Result documented in this encounter Visit Diagnoses Not on filedocumented in this encounter Care Teams Cigarette Stamper Relationship Specialty Start Date End Date Alvin Bailey NP PCP - General Family Practice 02/14/19 12/17/19 Miscellaneous, Not In File PCP - General 12/18/19 02/12/20 Heidi Hayden PA PCP - General 02/13/20 Aleks Franks MD Consulting Physician Cardiovascular Disease 02/14/19 Aleks Franks MD Escrow Representative Cardiology 02/17/19 documented as of this encounter
--- OUTSIDE RECORDS SUMMARY | 2024-11-16 16:36 | XMS_ITS | Encounter Summary ---
Author Organization [facility] Facility Care Team Providers Care Pediatric Ophthalmologist Name Role Phone Alvin Bailey NP Primary Care Provider [phone] Aleks Franks MD Unavailable [phone] Aleks Franks MD Unavailable [phone] Miscellaneous, Not In File Primary Care Provider Unavailable Heidi Hayden Primary Care Provider + Encounter Details Date Type Department Care Team (Latest Contact Info) Description 11/12/2014 Orders Only [facility] CLINCONV ProviderOanh MD [address] [place] [address] Social History Tobacco Use Types Packs/Day Years Used Date Smoking Tobacco: Never Assessed Comments Unknown Sex and Gender Information Value Date Recorded Sex Assigned at Not on file Legal Sex Female 2:52 AM BUTTON TUFTING MACHINE OPERATOR Gender Identity Not on file Sexual Orientation Not on file documented as of this encounter Plan of Treatment Not on file documented as of this encounter Procedures Procedure Name Priority Date/Time Associated Diagnosis Comments CARDIOLOGY REPORT 07/29/2016 12: 00 AM BUTTON TUFTING MACHINE OPERATOR documented in this encounter Results * CARDIOLOGY REPORT (07/29/2016 12:00 AM BUTTON TUFTING MACHINE OPERATOR) Anatomical Region Laterality Modality Other Narrative 07/29/2016 12:00 AM BUTTON TUFTING MACHINE OPERATOR Ordered by an unspecified provider. Historical Provider [facility] DAVIDA THURSTON Final Result documented in this encounter Visit Diagnoses Not on filedocumented in this encounter Care Teams Pediatric Ophthalmologist Relationship Specialty Start Date End Date Alvin Bailey NP PCP - General Family Practice 02/14/19 12/17/19 Miscellaneous, Not In File PCP - General 12/18/19 02/12/20 Heidi Hayden PA PCP - General 02/13/20 Aleks Franks MD Consulting Physician Cardiovascular Disease 02/14/19 Aleks Franks MD Gallery Or Museum Curator Cardiology 02/17/19 documented as of this encounter
--- OUTSIDE RECORDS SUMMARY | 2024-11-16 16:36 | XMS_ITS | Encounter Summary ---
Author Organization [facility] Facility Care Team Providers Care Cassandra Developer Name Role Phone Alvin Bailey NP Primary Care Provider [phone] Aleks Franks MD Unavailable [phone] Aleks Franks MD Unavailable [phone] Miscellaneous, Not In File Primary Care Provider Unavailable Heidi Hayden Primary Care Provider + Encounter Details Date Type Department Care Team (Latest Contact Info) Description 06/28/2017 Orders Only [facility] CLINCONV ProviderOanh MD [address] [place] [address] Social History Tobacco Use Types Packs/Day Years Used Date Smoking Tobacco: Never Assessed Comments Unknown Sex and Gender Information Value Date Recorded Sex Assigned at Not on file Legal Sex Female 2:52 AM JACQUARD LOOM CARD CHANGER Gender Identity Not on file Sexual Orientation Not on file documented as of this encounter Plan of Treatment Not on file documented as of this encounter Procedures Procedure Name Priority Date/Time Associated Diagnosis Comments PROCEDURE - RESULT 06/29/2017 12 :00 AM JACQUARD LOOM CARD CHANGER documented in this encounter Results * PROCEDURE - RESULT (06/29/2017 12:00 AM JACQUARD LOOM CARD CHANGER) Narrative 06/29/2017 12:00 AM JACQUARD LOOM CARD CHANGER Ordered by an unspecified provider. Historical Provider Final Res ult documented in this encounter Visit Diagnoses Not on filedocumented in this encounter Care Teams Cassandra Developer Relationship Specialty Start Date End Date Alvin Bailey NP PCP - General Family Practice 02/14/19 12/17/19 Miscellaneous, Not In File PCP - General 12/18/19 02/12/20 Heidi Hayden PA PCP - General 02/13/20 Aleks Franks MD Consulting Physician Cardiovascular Disease 02/14/19 Aleks Franks MD Dispatcher Bus And Trolley Cardiology 02/17/19 documented as of this encounter
--- OUTSIDE RECORDS SUMMARY | 2024-11-16 16:36 | XMS_ITS | Encounter Summary ---
Author Organization [facility] Facility Care Team Providers Care Compensation Supervisor Name Role Phone Alvin Bailey NP Primary Care Provider [phone] Aleks Franks MD Unavailable [phone] Aleks Franks MD Unavailable [phone] Miscellaneous, Not In File Primary Care Provider Unavailable Heidi Hayden Primary Care Provider + Encounter Details Date Type Department Care Team (Latest Contact Info) Description 12/24/2016 Orders Only [facility] CLINCONV ProviderOanh MD [address] [place] [address] Social History Tobacco Use Types Packs/Day Years Used Date Smoking Tobacco: Never Assessed Comments Unknown Sex and Gender Information Value Date Recorded Sex Assigned at Not on file Legal Sex Female 2:52 AM LSW Gender Identity Not on file Sexual Orientation Not on file documented as of this encounter Plan of Treatment Not on file documented as of this encounter Procedures Procedure Name Priority Date/Time Associated Diagnosis Comments CARDIOLOGY REPORT 12/24/2016 12: 00 AM CDT documented in this encounter Results * CARDIOLOGY REPORT (12/24/2016 12:00 AM CDT) Anatomical Region Laterality Modality Other Narrative 12/24/2016 12:00 AM CDT Ordered by an unspecified provider. Historical Provider [facility] DAVIDA THURSTON Final Result documented in this encounter Visit Diagnoses Not on filedocumented in this encounter Care Teams Compensation Supervisor Relationship Specialty Start Date End Date Alvin Bailey NP PCP - General Family Practice 02/14/19 12/17/19 Miscellaneous, Not In File PCP - General 12/18/19 02/12/20 Heidi Hayden PA PCP - General 02/13/20 Aleks Franks MD Consulting Physician Cardiovascular Disease 02/14/19 Aleks Franks MD Turning And Beading Machine Operator Cardiology 02/17/19 documented as of this encounter
--- OUTSIDE RECORDS SUMMARY | 2024-11-16 16:36 | XMS_ITS | Clinical Summary ---
Author Organization [facility] Office Center Address [address] [place] [address] Care Team Providers Care Prevocational/Rehabilitation Counselor Name Role Phone Aleks Franks MD Unavailable [phone] Heidi Hayden Primary Care Provider + Allergies No known active allergies Medications lisinopril-hydr [...] 07/29/2016 Dizziness 07/29/2016 Shortness of breath 07/29/2016 Encounters Date Type Department Care Team Description 08/22/2024 4:45 PM TANK FURNACE OPERATOR Office Visit [facility] Care at [address] [address] Betty Chavez NP Acute cough (Primary Dx) from Last 3 Months Surgical History Surgery Date Site/Laterality Comments SECTION 1994, 2000, 2004 TUBAL LIGATION LAPAROSCOPY 07/12/1990 - 07/11/1991 Medical History Medical History Date Comments Anxiety disorder Hypertension Depression Family History Medical History Relation Name Comments Clotting disorder Other Heart disease Other Hypertension Other Stroke Other Relation Name Status Comments Father Mother Other Social History Tobacco Use Types Packs/Day Years [...] on file Legal Sex Female 2:52 AM TANK FURNACE OPERATOR Gender Identity Not on file Sexual Orientation Not on file Obstetrics History Last Filed Vital Signs Vital Sign Reading Time Taken Comments Blood Pressure 142/81 08/22/2024 4:45 PM TANK FURNACE OPERATOR Pulse 69 08/22/2024 4:45 PM TANK FURNACE OPERATOR Temperature 36.8 C (98.3 F) 08/22/2024 4:45 PM TANK FURNACE OPERATOR Respiratory Rate 20 08/22/2024 4:45 PM TANK FURNACE OPERATOR Oxygen Saturation 99% 08/22/2024 4:45 PM TANK FURNACE OPERATOR Inhaled Oxygen Concentration - - Weight 69.9 kg (154 lb) 08/22/2024 4:45 PM TANK FURNACE OPERATOR Height 167.6 cm (5' 6 ) 08/22/2024 4:45 PM TANK FURNACE OPERATOR Body Mass Index 24.86 08/22/2024 4:45 PM TANK FURNACE OPERATOR Plan of Treatment Health Maintenance Due Date Last Done Comments Cervical Cancer Screening 1970 Colon Cancer Screening-Colonoscopy 1970 Depression Screening 1970 Hepatitis C Screening 1970 DTaP/Tdap/Td Vaccine (1 - Tdap) 1981 Hepatitis B Screening 1988 Regular Well Visit/Exam 18-64 1988 Breast Cancer Screening-Mammogram 11/20/2015 11/19/2014 Zoster Vaccine (1 of 2) 2020 Covid-19 Vaccine (3 - 2023-2 5 season) 2024 08/21/2020, 07/24/2020 Influenza Vaccine (Season Ended) 2025 Pneumococcal vaccine <65 Aged Out No longer eligible based on patient's age to complete this topic Procedures Procedure Name Priority Date/Time Associated Diagnosis [...] Electronically signed by: Conrad Poe md/:11/20/2014 08:22:57 Turnaround Planner: Payton FARAH (Ivette)(Nancy), [facility] letter sent: Normal Exam Reading location: BI-RADS: 2 Benign [EOD] Narrative 11/20/2014 8:27 AM CDT - [facility] BILAT SCREENING 3D W/CAD BILATERAL DIGITAL SCREENING [...] Note Provider, MD Oanh - 11/26/2020 - [facility] BILAT SCREENING 3D W/CAD BILATERAL DIGITAL SCREENING [...] Electronically signed by: Conrad Poe md/:11/20/2014 08:22:57 Turnaround Planner: Payton Phoenix RT (R)(M), [facility] letter sent: Normal Exam Reading location: BI-RADS: 2 Benign [EOD] us Tina Garza MD IMG MAMMO PRO CEDURES Final Result from Last 3 Months or Most Recently Relevant to Health Maintenance Insurance ALLIED BENEFITS [employer] [place] [address] [employer] PPO [employer] H[employer]PPO Address: [address] [place] [address] Advance Directives For more information, please contact: [phone] Documents on File Type Date Recorded Patient Housekeeper/Custodian/Laundry Worker Expl anation ADVANCE DIRECTIVE 01/02/2015 12:00 AM KELECHI R OF NAVAL ENGINEER FINANCIAL/MEDICAL Care Teams Prevocational/Rehabilitation Counselor Relationship Specialty Start Date End Date Heidi Hayden PA PCP - General 02/13/20 Aleks Franks MD Compressor Engineer Cardiology 02/17/19
--- OUTSIDE RECORDS SUMMARY | 2024-11-16 16:36 | XMS_ITS | Data Portability ---
Author Organization [place] - [facility] OFFICE Address [address] [place] [id number] Care Team Providers Care Toolroom Checker Name Role Phone JARETH AREVALO Primary Care Provider Assessment Encounter Date Assessment Date Assessment LastModified by Organization Details LastModified Time 09/30/2018 09/30/2018 Discussed with patient findings, diagnosis, and prognosis. Discussed evaluation and treatment options including risks and benefits with patient, and patient expressed understanding. The following interventions were recommended: heart healthy low-fat, low-sodium diet, avoid strenuous exercise pending completion of cardiovascular evaluation, maintain appropriate weight, continue current medications, and medical follow-up as noted. Not available 09/30/2018 12:07:12 Plan of Treatment Reminders Order Date Submit Date Provider Last Modified By Organization Details Last Modified Time Details Appointments None record ed. Lab None record ed. Referral None record ed. Procedures None record ed. Surgeries None record ed. Imaging None record ed. Medication Orders None record ed. Patient TargetsNo targets recorded. Patient Instructions Encounter Date Encounter Id Patient Instructions Last Modified By Organization Details Last Modified Time 08/26/2017 Exercise advised Low cholesterol diet advised Low sodium diet advised. [email or web address] Not available 08/26/2017 13:28:17 Reason for Referral None Reported. Results Created Date Observation Date Name Description Value Unit Range Abnormal Flag Note LastModifiedBy Organization Detail LastModifiedTime 08/19/19 18 04/15/2017 elect rocar diogr am No observ ation record ed. [email or web address] Not Available 2017 09:45:32 08/26/19 18 08/26/2017 elect rocar diogr am No observ ation record ed. [email or web address] Not Available 2017 17:56:30 10/14/19 18 10/08/2017 stres s echoc ardio gram No observ ation record ed. [email or web address] Not Available 2018 09:16:54 10/01/19 19 09/13/2015 ulices wright* No observ ation record ed. [email or web address] Not Available 2018 01:13:45 10/01/19 19 01/03/2015 endol umina l ablat ion (PROC ) No observ ation record ed. [email or web address] Not Available 2018 01:16:11 10/01/19 19 09/30/2018 adam hope am No observ ation record ed. [email or web address] Not Available 2018 01:20:51 Result Notes None recorded. Problems Name Problem SNOMED Code Status Onset Date Resolution Date Notes Provider Name and Address Organization Details Recorded Time Chest pain 14709830 Active 2016 Carol Mendez [facility], [place] - [facility] 8 15:51:26 Difficulty breathing 939382548 Active 2016 Carol grajeda, [place] - [facility] 8 15:51:26 Ventricular premature beats 36723105 Active 2017 Carol Mendez null, [place] - [facility] 8 15:56:31 Essential hypertension 08044439 Active 2018 Carol Mendez [place], [place] - [facility] 9 09:16:04 Mitral valve prolapse 126898423 Active 2018 Carol Mendez [place], [place] - [facility] 9 09:16:12 Supraventricul ar tachycardia 2892120 Active 2018 Carol Mendez [place], [place] - [facility] 9 09:16:23 Cardiac arrhythmia 671827219 Active 2018 Santana grajeda, [place] - [facility] 9 11:52:54 Problem Notes None recorded. Procedures Surgical History Date Name Laterality Status Provider Name and Address Organization Details Recorded Time Caesarean Section completed Carol Mendez [place] - [facility] 08/22/2017 15:54:51 Imaging Results Imaging Date Name Status LastModified by Organization Details LastModified Time 04/15/2017 electrocardiogram completed [email or web address] Informa tion not available 08/20/2017 09:45:32 08/26/2017 electrocardiogram completed [email or web address] Informa tion not available 08/26/2017 17:56:30 10/08/2017 stress echocardiogram completed esto Information not available 09/29/2018 09:16:54 09/13/2015 treadmill* completed [facility] Information no t available 10/01/2018 01:13:45 01/03/2015 endoluminal ablation (PROC) completed [facility] Information not available 10/01/2018 01:16:11 09/30/2018 electrocardiogram completed [facility] Informa tion not available 10/01/2018 01:20:51 Procedure Notes None recorded. Medical Equipment None Reported. Allergies No known drug allergies Medications Name Sig Start Date Stop Date Status Note LastModified by Organization Details LastModified Time paroxetine 10 mg tablet Take 1 tablet every day by oral route as directe d. active Not Available Not Available No t Available trazodone 50 mg tablet active not taking at this time Not Available Not Available Not Available cetirizine 10 mg tablet prn active Not Available Not Available Not Available aspirin 81 mg tablet,matilde yed release qd active Not Available Not Available Not Available hydrochloro thiazide 25 mg tablet 08/26 completed Not Available Not Available Not Available lisinopril 10 mg-hydrochl orothiazide 12.5 mg tablet Take 1 tablet by oral route. active qd Not Available Not Available No t Available fluticasone propionate 50 mcg/actuati on nasal spray,suspe nsion prn 09/30 completed Not Available Not Available Not Available neomycin 3.5 mg/g-polymy amelia B 10,000 unit/g-dexa meth 0.1 % eye oint prn active Not Available Not Available Not Available TobraDex 0.3 %-0.1 % eye drops,suspe nsion prn active Not Available Not Available Not Available nitrofurant oin monohydrate /macrocryst als 100 mg capsule 08/26 completed Not Available Not Available Not Available Vitals Date Recorded Body weight Body mass index (BMI) Body height Heart rate Oxygen saturation Oxygen saturation in Arterial blood by Pulse oximetry Systolic blood pressure Diastolic blood pressure Provider Name and Address Organization Details Last Updated DateTime 8 84085.7 8 g 25.8 kg/m2 167.64 cm 56 /min 96 % 96 % 126 mm[Hg] 75 mm[Hg] Perry Telles i, MD [address] [place], [address], [facility] 8 13:01:03 Date Recorded Body height Body mass index (BMI) Body weight Heart rate Oxygen saturation Oxygen saturation in Arterial blood by Pulse oximetry Systolic blood pressure Diastolic blood pressure Provider Name and Address Organization Details Last Updated DateTime 9 167.64 cm 21.8 kg/m2 95782.9 7 g 68 /min 98 % 98 % 130 mm[Hg] 72 mm[Hg] Pascual Aragon [facility] 9 11:01:02 Social History Question Answer Notes LastModified by Organizat ion Details LastModified Time Tobacco Smoking Status Never Smoker Not Available [facility] 05/14/2020 03:30:19 What Is Your Level Of Alcohol Consumption? None [id number] Information not available 05/14/2020 What Was The Date Of Your Most Recent Tobacco Screening? 08/22/2017 [id number] Information not available 05/14/2020 How Many Years Have You Smoked Tobacco? 0 [id number] Information not available 05/14/2020 Sex: Unknown Functional Status None recorded. Mental Status None recorded. Family History Relationship Description Onset Age of this Age Resolved Age Notes LastModified by Organization Details LastModified Time Father Heart disease [email or web address] Not available 2017 15:55:24 Mother Cerebrovascu lar accident [email or web address] Not available 05/2018 15:55:53 Medical History Condition Response Valvular Heart Disease Y Arrhythmia Y Hypertension Y Gynecological HistoryNo gynecological history recorded. Obstetrics History GPAL:G 0 P 0 0 0 0 Past Encounters Encounter ID Performer Location Encounter Start Date Encounter Closed Date Diagnosis/Indication Diagnosis SNOMED-CT Code Diagnosis ICD10 Code Diagnosis Note [id number] MD Lakhwinder Bazzi Office [address] [address] 08/26/2017 12:19:28 08/26/2017 13:36:17 Ventricular premature beats 30681429 I49.3 Chest pain 71186434 R07. 9 Will get exercise stress echo, to look for any structural heart disease, and to look for any ischemia Difficulty breathing 230 703473 R06.00 Supraventr icular tachycardia 5424384 I47.1 s/p Ablation Essential hypertension 21734256 I10 Now well controlled Agree with lisinopril Mitral valve prolapse 40 4503146 I34.1 [id number] MD Lakhwinder Franklin Office [address] [place] [address] 09/30/2018 10:49:28 09/30/2018 12:09:22 Ventricular premature beats 94300725 I49.3 Stable. 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 Had ECHO: 11/12/14 BP 110/60. Normal sinus rhythm with PVC's noted. Normal sinus rhythm with PVC's noted. Left ventricula r systolic function is normal. EF=>55%. Right ventricula r systolic pressure is normal. There is mild tricuspid regurgitat ion. Chest pain 58302258 R07. 9 Increased chest pressure in recent weeks. Had negative SE done in 10/08/17: Negative stress test. mild exercise impairment , MVP noted . Had exercise nuclear stress test 09/13/15: negative for ischemia, LVEF 68%. . Patient presents with {{chest* a rm back ja w}} pain {{typical of angina wit h atypical features*} }. Given the history, exam findings and {{high* in termediate low}} cardiac risk factors, I {{feel* do not feel}} additional investigat ion is warranted. I have made arrangemen ts in the near future for {{an exercise stress nuclear test.# an exercise stress echocardio gram to evaluate for any ischemia, structural heart disease, or exercise induced arrythmia an exercise stress nuclear test an exercise stress nuclear test (stress echo not possible due to COPD or obesity) a n exercise stress nuclear test and an echocardio gram to evaluate for any ischemia or structural heart disease a pharmacolo gic stress nuclear test due to reduced functional capacity or conduction abnormalit y cardiac catheteriz ation an echocardio gram to evaluate left ventricula r function and any structural heart disease or valvular abnormalit y}}. The procedure was discussed with the patient, and risks, benefits, and alternativ e options were explained. {{ The patient was informed about heart catheteriz ation and interventi onal procedures and agrees to proceed.}} Appropriat e labwork {{has* has not}} been performed recently, therefore I {{have not* have} } made arrangemen ts for further testing: obtain FLP, labs per PCP. I have asked the patient to curtail exercise and activities until our investigat ion is complete. I have {{made no* made the following} } adjustment s to the present medical regimen. {{ Patient has been started on daily aspirin.}} {{ Patient has been given a prescripti on for sublingual nitroglyce rin.}} Difficulty breathing 230 676398 R06.00 Had negative SE done in 10/08/17: Negative stress test. mild exercise impairment , MVP noted . Essential hypertension 59335861 I10 Patient's blood pressure is {{well-con trolled* s omewhat well-contr olled not well-contr olled}} on present medical therapy. Patient is {{tolerati ng, without difficulty ,* having side effects with}} the current medication s. I have {{not made* made the following} } changes to the current regimen. {{ Patient is advised to maintain a blood pressure diary.*}} Patient was advised to eat a low-sodium diet (2 grams sodium or less daily). BP monitor. Agree with lisinopril /HCTZ. Mitral valve prolapse 40 4968411 I34.1 Regular exercise, caffeine reduction, stress reduction advised. Cardiac arrhythmia 11552 7007 I49.9 Patient is s/p RV outflow tract ablation (01/03/15) for symptomati c RV outflow tract ectopy, previously accounting for 30-50% of beats. Health Concerns Section Related Observation LastModified by Organization Detai ls LastModified Time None Recorded Concern Status LastModified by Organization Details LastModified Time None Recorded Advance Directives Directive None Recorded Payers Insurance Date Sequence Insurance Name Policy Number Policy Vera Covered Member ID Vera Member ID Guarantor Name 09/30/2018 1 [place] [id number] Tina Aceves [id number] Tina Aceves 12/13/2018 1 [employer] Tina Aceves [id number] Tina Aceves Notes Date Note Type Note Provider Name and Address Organization Details Recorded Time 08/26/2017 text/html 08/26/17 CC : chest pain 46 year old white woman with no significant past medical history was referred for cardiac evaluation . She has non exertional chest pain, with occasional Palpitationshe started that she is not feeling well. She had echo with Normal left ventricular systolic function. Reported chest tightness. No shortness of breath at rest. Reported dyspnea on exertion No orthopnea. No PND's . No dizziness. No palpitation. No syncope or nearsyncope. No leg swelling. No nausea and vomiting. No major bleeding events. No side effects from medications. Results from this visit, or from the past:06/14/17: TC 160, HDL 80, TR 60, LDL 74. 04/14/17: SOD 140, K 4.0, CL 101, CO2 27.4, GL 77, BUN 16, CR 0.80, AST 16.0, ALT 12.0 EKG 08/26/2017: Sinus bradycardia; otherwise within normal limits EK04/15/17 Sinus bradycardia. Left atrial abnormality. Poor R wave progression. Right axis deviation. EKG/HOLTER: 11/13/14: 24 Hour Holter monitor with frequent PVC's ECHO: ECHO: 11/12/14 BP 110/60. Normal sinus rhythm with PVC's noted. Normal sinus rhythm with PVC's noted. Left ventricular systolic function is normal. EF=>55%. Right ventricular systolic pressure is normal. There is mild tricuspid regurgitation. Perry Lima MD [facility] [place], [address], [facility] - [facility] 08/26/2017 13:29:23 09/30/2018 text/html 10/01/18 CC : chest pain 46 year old white woman with history of PVCs, s/p RV outflow tract ablation (01/03/15) for symptomatic RV outflow tract ectopy (previously accounting for 30-50% of beats), hypertension, mitral valve prolapse, anxiety, is seen for chest pain. She exercises regularly with occasional chest pain, stable over last year. In the last few months, she has more left central chest heaviness which occurs at rest usually, lasting few hours. At other times, has sharp chest pain lasting less than a minute. No recent palpitations. She stated that she is not feeling well. She had echo with Normal left ventricular systolic function. Reported chest pressure on occasion. No shortness of breath at rest. Reported no dyspnea on exertion No orthopnea. No PND's . Rare dizziness. No palpitation. No syncope or near syncope. No leg swelling. No nausea and vomiting. No major bleeding events. No side effects from medications. Had negative SE done in 10/08/17: Negative stress test. mild exercise impairment , MVP noted . Had exercise nuclear stress test 09/13/15: negative for ischemia, LVEF 68% Had ECHO: 11/12/14 BP 110/60. Normal sinus rhythm with PVC's noted. Normal sinus rhythm with PVC's noted. Left ventricular systolic function is normal. EF=>55%. Right ventricular systolic pressure is normal. There is mild tricuspid regurgitation. Results from this visit, or from the past: 06/14/17: TC 160, HDL 80, TR 60, LDL 74.04/14/17: SOD 140, K 4.0, CL 101, CO2 27.4, GL 77, BUN 16, CR 0.80, AST 16.0, ALT 12.0 EKG 09/30/18: Non-specific ST depression, inferolateral leadsEKG 08/26/2017: Sinus bradycardia; otherwise within normal limitsEK04/15/17 Sinus bradycardia. Left atrial abnormality. Poor R wave progression. Right axis deviation. EKG/HOLTER: 11/13/14: 24 Hour Holter monitor with frequent PVC's ECHO: ECHO: 11/12/14 BP 110/60. Normal sinus rhythm with PVC's noted. Normal sinus rhythm with PVC's noted. Left ventricular systolic function is normal. EF=>55%. Right ventricular systolic pressure is normal. There is mild tricuspid regurgitation. RODGER Pimentel - [facility] 09/30/2018 12:08:53 OBGyn Episode No OBEpisode recorded.
--- OUTSIDE RECORDS SUMMARY | 2024-11-16 16:36 | XMS_ITS | Clinical Summary ---
Author Organization [facility] Address [address] [place] [address] Phone Care Team Providers Care Medical Corps Officer Name Role Phone Provider, Unknown Primary Care Provider Unavaila ble Allergies No known active allergies Medications lisinopril-hydro CHLOROthiazide (PRINZIDE, ZESTORETIC) 10-12.5 MG Tablet TK 2 TS PO QD 4 05/09/2018 Active Social History Tobacco Use Types Packs/Day Years Used Date Smoking Tobacco: Never Smokeless Tobacco: Never Alcohol Use Standard Drinks/Week Comments Yes 0 (1 standard drink = 0.6 oz pur e alcohol) very little Comments No Sex and Gender Information Value Date Recorded Sex Assigned at Not on file Legal Sex Female 8:28 AM CDT Gender Identity Not on file Sexual Orientation Not on file Last Filed Vital Signs Vital Sign Reading Time Taken Comments Blood Pressure 110/70 06/10/2018 9:18 AM WEAVING MACHINE OPERATOR Pulse 61 06/10/2018 9:18 AM WEAVING MACHINE OPERATOR Temperature 36.5 C (97.7 F) 06/10/2018 9:18 AM WEAVING MACHINE OPERATOR Respiratory Rate 16 06/10/2018 9:18 AM WEAVING MACHINE OPERATOR Oxygen Saturation 98% 06/10/2018 9:18 AM WEAVING MACHINE OPERATOR Inhaled Oxygen Concentration - - Weight 64.9 kg (143 lb) 06/10/2018 9:18 AM WEAVING MACHINE OPERATOR Height 167.6 cm (5' 6 ) 06/10/2018 9:18 AM WEAVING MACHINE OPERATOR Body Mass Index 23.08 06/10/2018 9:18 AM WEAVING MACHINE OPERATOR Plan of Treatment Health Maintenance Due Date Last Done Comments Hepatitis C Virus (HCV) Screening 1970 TdaP Immunization 1970 Hepatitis B Immunization (1 of 3 - 19+ 3-dose series) 1989 Colonoscopy 10/21/2015 Colorectal Cancer Screening 10/21/2015 Cologuard 2020 Immunochemical Fecal Occult Blood 2020 Pneumococcal Immunization (5 0+ years) (1 of 1 - PCV) 2020 Zoster Immunization (1 of 2) 2020 Influenza Immunization (#1) 2024 SARS-COV-2 Immunization (3 - season) 2024 08/21/2020, 07/24/2020 Respiratory Syncytial Virus (RSV) Immunization (Adult) (1 - 1-dose 75+ series) 2045 Meningococcal Immunization (ACWY) Aged Out No longer eligible b ased on patient's age to complete this topic Rotavirus Immunization Aged Out No lo nger eligible based on patient's age to complete this topic Insurance Care Teams Medical [employer] Officer Relationship Specialty Start Date End Date Provider, Unknown UNKNOWN PCP - General 06/10/18
[2024-11-16 16:46] LABS: Creatine Kinase 80 U/L (30-135); Magnesium 2.1 mg/dL (1.6-2.3)
[2024-11-16 16:58] LABS: Lactic Acid Reflex 1.1 mmol/L (0.7-2.0)
[2024-11-16 17:00] LABS: NT Pro B Type Natriuretic Pept 109 pg/mL (19.9-100); Troponin I < 0.012 ng/mL (0.000-0.034)
[2024-11-16 17:22] LABS: Influenza A QL RT-PCR Negative (Negative); Influenza B QL RT-PCR Negative (Negative); RSV RNA, RT-PCR Negative (Negative); SARS-CoV-2 RNA PCR Negative (Negative)
--- NOTE | 2024-11-16 17:23 | ED.GENADULT ---
HPI - General Adult General Chief complaint: Weakness Stated complaint: unwell Time Seen by Provider: 11/16/24 16:15 History of Present Illness HPI narrative: Patient 54-year-old female who presents emergency department with chief complaint of feeling unwell. Patient reports she has history of hypertension patient states for the last week she has been achy has been feeling not well reports she just can not really describe how she feels. The patient reports no chest pain states she feels maybe a little bit short of breath at times Related Data Home Medications ?Medication ?Instructions ?Recorded ?Confirmed ?Last Taken ?Type losartan 100 1 tablet PO DAILY 11/19/23 12/03/23 12/02/23 History mg-hydrochlorothiazide 12.5 mg tablet Allergies Allergy/AdvReac Type Severity Reaction Status Date / Time No Known Allergies Allergy Verified 12/03/23 08:43 Review of Systems Review of Systems: A 10 system review of systems was completed on the patient and is negative except for what is stated in the HPI. Nursing and ancillary documentation was reviewed. [facility] Past Medical History Medical History Family history of colon cancer Hypertension Surgical History Surgical History History of tubal ligation Social History Social History Alcohol intake: current Living arrangements: with family Spiritual care concerns: No Exam Narrative: GENERAL: Well-appearing, well-nourished, and in no acute distress. HEAD: Normocephalic, atraumatic. EYES: PERRLA and EOMI. ENT: Nares clear, no rhinorrhea or epistaxis. Mucous membranes moist. NECK: Supple. CHEST: Clear to auscultation. No respiratory distress. HEART: Regular rate and rhythm. No murmur heard. Normal peripheral pulses. ABDOMEN: Soft, nontender, nondistended, normal active bowel sounds. EXTREMITIES: Normal range of motion. No edema. SKIN: Warm, dry, no rash. NEURO: No focal deficits. Alert and oriented x3. PSYCH: Normal mood and affect. Course Vital Signs Vital signs: Vital Signs Temperature 36.7 C 11/16/24 16:02 Pulse Rate 65 11/16/24 16:02 Respiratory Rate 20 11/16/24 16:02 Blood Pressure 137/88 11/16/24 16:02 Pulse Oximetry 99 11/16/24 16:02 Oxygen Delivery Room Air 11/16/24 16:02 Temperature 36.7 C 11/16/24 16:02 Pulse Rate 65 11/16/24 16:02 Respiratory Rate 20 11/16/24 16:02 Blood Pressure 137/88 11/16/24 16:02 Pulse Oximetry 99 11/16/24 16:02 Oxygen Delivery Room Air 11/16/24 16:02 Medical Decision Making Vital Signs Vital Signs: Vital Signs Temperature 36.7 C 11/16/24 16:02 Pulse Rate 65 11/16/24 16:02 Respiratory Rate 20 11/16/24 16:02 Blood Pressure 137/88 11/16/24 16:02 Pulse Oximetry 99 11/16/24 16:02 Oxygen Delivery Room Air 11/16/24 16:02 Temperature 36.7 C 11/16/24 16:02 Pulse Rate 65 11/16/24 16:02 Respiratory Rate 20 11/16/24 16:02 Blood Pressure 137/88 11/16/24 16:02 Pulse Oximetry 99 11/16/24 16:02 Oxygen Delivery Room Air 11/16/24 16:02 Lab Data 11/16/24 16:16 11/16/24 16:16 Labs: Lab Results 11/16/24 11/16/24 11/16/24 Range/Units 16:15 16:16 16:41 WBC 8.8 (4.5-10.0) K/mm3 RBC 4.22 (4.2-5.4) M/mm3 Hgb 13.3 (12.0-15.0) g/dL Hct 41.0 (37.0-47.0) % MCV 97.2 (80-100) fl MCH 31.5 (26-34) pg MCHC 32.4 (32-36) g/dl RDW 13.8 (11.5-14.5) % Plt Count 246 (150-375) k/mm3 MPV 9.5 (7.4-10.4) fl Immature Gran % (Auto) 0.1 (0-0.5) % Neut % (Auto) 50.2 (45.5-73.1) % Lymph % (Auto) 40.2 (18.3-44.2) % Frontier % (Auto) 8.9 H (2.6-8.5) % Eos % (Auto) 0.3 (0-4.4) % Baso % (Auto) 0.3 (0.2-1.2) % Lymph # (Auto) 3.54 H (0.9-3.2) K/mm3 Frontier # (Auto) 0.8 H (0.1-0.6) K/mm3 Eos # (Auto) 0.0 (0-0.3) K/mm3 Baso # (Auto) 0.0 (0.0-0.1) K/mm3 Abs Immat Gran (auto) 0.01 (0.00-0.031) K/mm3 Absolute Neuts (auto) 4.4 (1.3-6.7) K/mm3 Absolute Nucleated RBC 0.000 (0.0-0.012) K/mm3 Nucleated RBC % 0.0 (0.0-0.2) % Sodium 140 (137-145) mmol/L Potassium 3.4 (3.4-5.0) mmol/L Chloride 104 (98-107) mmol/L Carbon Dioxide 28 (22-30) mmol/L Anion Gap 8 (4-12) mmol/L BUN 18 H (7-17) mg/dL Creatinine 0.84 (0.7-1.0) mg/dL Estim Creat Clear Calc 63 ml/min Estimated GFR > 60 (59 - ) Glucose 116 H (65-110) mg/dL Lactic Acid 1.1 (0.7-2.0) mmol/L Calcium 9.4 (8.4-10.2) mg/dL Magnesium 2.1 (1.6-2.3) mg/dL Total Bilirubin 0.4 (0.2-1.3) mg/dL AST 27 (14-36) U/L ALT 19 (6-35) U/L Alkaline Phosphatase 98 (38-126) U/L Total Creatine Kinase 80 (30-135) U/L Troponin I < 0.012 (0.000-0.034) ng/mL NT-Pro-B Natriuret Pep 109 H (19.9-100) pg/mL Total Protein 8.0 (6.3-8.2) g/dL Albumin 4.4 (3.5-5.1) g/dL Influenza A (RT-PCR) Negative (Negative) Influenza B (RT-PCR) Negative (Negative) RSV (RT-PCR) Negative (Negative) SARS-CoV-2 RNA (RT-PCR) Negative (Negative) Discharge Plan Discharge Clinical Impression: Myalgia, Acute viral syndrome Patient Disposition: Home Condition: Stable Instructions: Antibiotic Form, Viral Syndrome (ED), Musculoskeletal Pain (ED), Fatigue (ED) Patient Language: Unknown Prescriptions: No Action losartan-hydrochlorothiazide 100-12.5 mg tablet 1 tablet PO DAILY Follow-up/Referrals: Catracho,BRIAN Plasencia [Primary Care Provider] - Time of Disposition: 17:49
[2024-11-16 17:51] LABS: Add Urine Microscopic? YES; Appearance Urine Clear (Clear); Bacteria Urine 3+ /hpf; Bilirubin Urine Negative (Negative); Blood Urine Trace (Negative); Color Urine Yellow (Yellow); Glucose Urine UA Negative (Negative); Ketones Urine Negative (Negative); Leukocyte Esterase Ur 1+ LEU/UL (Negative); Nitrate Urine Negative (Negative); Non Pathogenic Casts 0-2; Protein Urine Negative (Negative); Specific Grav Ur 1.016 (1.001-1.035); Squamous Epithelial Cell Urine Moderate /hpf (Few); pH Urine 6.5 (5.0-9.0)
[2024-11-16 18:19] VITALS: BP 126/89; PULSE 65; RESP 23; TEMP 36.6; O2SAT 98
== END 2024-11-16 18:20 | disposition home or self-care (01) ==
PROVIDERS: Emergency Provider Emergency Medicine; PCP Physician Assistant
DX: M79.10 Myalgia, unspecified site (principal); B34.9 Viral infection, unspecified; I10 Essential (primary) hypertension; Z80.0 Family history of malignant neoplasm of digestive organs; Z20.822 Contact with and (suspected) exposure to COVID-19
CPT/HCPCS: 36415; 71046; 80053; 81001; 82550; 83605; 83735; 83880; 84484; 85025; 87637; 93005; 99284